=== PATIENT | female | born 1960 | race Caucasian/White ===

== ENCOUNTER 2024-05-22 23:54 | Emergency (ER) | payer BC, SELFPAY ==
[2024-05-22 23:58] VITALS: BP 120/68
[2024-05-23 00:20] LABS: Urine Albumin 2+ (Neg - Trace); Urine Bilirubin Negative (Negative); Urine Character Slightly Cloudy (Clear); Urine Color Yellow; Urine Glucose Negative (Negative); Urine Ketone Negative (Negative); Urine Leukocyte 3+ (Negative); Urine Nitrite Negative (Negative); Urine Occult Blood 4+ (Negative); Urine Specific Gravity 1.015 (<1.030); Urine Urobilinogen Negative (Neg - 1+)
[2024-05-23 01:01] LABS: Urine Mucus Many; Urine Squamous Cell >30 /LPF (Few); Urine Urothelial Cell >30 /LPF (FEW)
[2024-05-23 01:02] LABS: Urine Amorphous Seen; Urine White Cell >100 /HPF (0-5)
[2024-05-23 01:10] LABS: Urine Bacteria Many (Negative); Urine Red Blood Cell >100 /HPF (0-2); Urine Yeast SEEN (Negative)
[2024-05-23 03:22] VITALS: BMI 19.2
[2024-05-23 03:33] VITALS: BP 101/68
--- NOTE | 2024-05-23 04:08 | ED.GENMED ---
History of Present Illness
General
Chief Complaint: Urinary Symptoms
Source: patient
Exam Limitations: none
Time Seen by Provider: 05/23/24 03:55
Nursing documentation reviewed up to this point in time: agreed with
History of Present Illness
History of Present Illness:
This is a 63-year-old woman who has history of occasional UTIs. It has been a number of years since her last UTI. She presents with dysuria, urinary frequency, urgency that began yesterday morning, progressive throughout the day. She has not had
a fever nor chills, she denies back nor flank pain, no abdominal pain, no nausea nor vomiting, no diarrhea or constipation. She has not noticed hematuria.
Current symptoms feel very similar to previous UTIs.
She has not taken anything for discomfort.
Past History
Past History
ED Past Medical History: Other (Postoperative PE 2011)
ED Past Surgical History: Orthopedic
Social History
Tobacco: Non-smoker
Personal:
Living: with family
Employment: Employed
Family History
Family History: Other (Noncontributory)
Phy Exam
Physical Exam
Physical Exam:
GENERAL: Alert , in no apparent distress
EYE: anicteric
NECK: Supple, nontender, no meningismus, no significant adenopathy.
ENT: oral mucosa is moist. No rhinorrhea.
CARDIAC: Regular rate and rhythm. no murmur.
LUNGS: Clear breath sounds bilaterally, no acute respiratory distress, no wheezes/rales/rhonchi
ABDOMEN: Soft, nondistended, without focal tenderness, no r/g, no cvat. normoactive BS.
NEUROLOGICAL: Alert and oriented x3, no focal neuro deficits. Gait is thompson and steady.
SKIN: Warm and dry, normal color, skin intact. No rash.
MUSCULOSKELETAL: No C/C/E. peripheral pulses are full and equal b/l. No palpable tenderness.
PSYCH: Normal and appropriate interaction.
Course
Orders/Labs/Results
Orders:
Orders
05/23/24 00:05
Urinalysis Reflex To Culture Urgent
Date Specimen was Collected: 05/23/24
Time Specimen was Collected: 00:02
Urine Microscopic Reflex Cult Urgent
Urine Culture Urgent
[facility] Source: U
Specimen Description:
Date Specimen was Collected: 05/23/24
Time Specimen was Collected: 00:02
05/23/24 04:08
Nitrofurantoin Monohydrate [Macrobid] 100 mg PO NOW STA
Phenazopyridine HCl [Pyridium] 200 mg PO NOW STA
Abnormal Lab Results
05/23/24
00:05
Ur Occult Blood Reflex 4+ A
(Negative)
Leukocyte Esterase Rfl 3+ A
(Negative)
Urine RBC >100 A /HPF
(0-2)
Urine WBC (Reflex) >100 A /HPF
(0-5)
Urine Bacteria (Reflex) Many A
(Negative)
Urine Albumin (Reflex) 2+ A
(Neg - Trace)
Vital Signs
Initial and Last Documented VS:
Initial Vital Signs
Temp Pulse Resp BP Pulse Ox
98.4 F 74 16 120/68 98
05/22/24 23:58 05/22/24 23:58 05/22/24 23:58 05/22/24 23:58 05/22/24 23:58
Last Documented Vital Signs
Temp Pulse Resp BP Pulse Ox
98.4 F 68 14 101/68 95
05/22/24 23:58 05/23/24 03:33 05/23/24 03:33 05/23/24 03:33 05/23/24 03:33
MDM/Problems Addressed
Differential Diagnosis Includes:
Patient presents with 1 day history of UTI symptoms.
Overall well in appearance. Nothing in history nor exam to suggest upper tract infection.
No history of immunocompromise. No history of frequent UTIs nor interstitial cystitis.
Urinalysis consistent with UTI. Urine culture is pending.
Will treat with 5-day course of Macrobid and add Pyridium for as needed discomfort.
Discussed importance of staying well-hydrated on a daily basis.
Follow-up with PCP as needed.
Return precautions discussed.
*Pulse Oximetry
Patient hypoxic: no
*Critical Care Note
Total Time (30-74mins, 75-104mins- exclusive of procedures): Not Applicable
ED Attending Note
-
Portions of this chart may have been created with voice recognition software.� Occasional wrong word or��sound alike� substitutions may have occurred due to the inherent limitations of voice recognition software.
Discharge Plan
Departure
Patient Disposition: Home (Routine Discharge)
Date of Disposition: 05/23/24
Time of Disposition: 04:08
Patient with high blood pressure during this ER visit?: No
Condition: Good
Discharge Problem:
Acute cystitis
Instructions: Urinary Tract Infection, Adult (DC)
Prescriptions:
New
nitrofurantoin monohyd/m-cryst [Macrobid] 100 mg capsule
100 mg PO Q12H 5 Days Qty: 10 0RF
phenazopyridine [Pyridium] 200 mg tablet
200 mg PO TID PRN (Reason: bladder pain) 3 Days Qty: 9 0RF
Referrals:
UNKNOWN - PT DOES,NOT KNOW [Family Provider] -
Interventions
Interventions:
*Risk Screen - Suicide Last Done: 05/22/24 23:58
*Neglect/Abuse Screening Last Done: 05/22/24 23:58
ED- Fall Risk Assessment Last Done: 05/23/24 03:22
*ED COVID-19 Vaccine History Last Done: 05/23/24 03:22
ED-Female Genitourinary Assessment Last Done: 05/23/24 03:22
Discharge Date and Time
Print Language: ROMANSH
[2024-05-23] MEDS: MACROBID 100 MG PO (04:34)
[2024-05-23] MEDS: Pyridium 200 MG PO (04:35)
== END 2024-05-23 04:35 | disposition home or self-care (01) ==
LOC: EMR 23:54
PROVIDERS: Physician Assistant; EMERGENCY PHYSICIAN Emergency Medicine
DX: N30.00 Acute cystitis without hematuria (principal); Z86.711 Personal history of pulmonary embolism; Z87.440 Personal history of urinary (tract) infections
CPT/HCPCS: 99282; 81003; 81015; 87086

== ENCOUNTER → 2024-12-19 11:41 | Outpatient (REF) | payer SELFPAY | LOC: HWRAD 11:41 | PROVIDERS: ATTENDING PHYSICIAN Family Medicine; OTHER PHYSICIAN Internal Medicine Hematology & Oncology; REFERRING PHYSICIAN Internal Medicine Cardiovascular Disease | DX: G45.9 Transient cerebral ischemic attack, unspecified (principal) | CPT/HCPCS: 75571 ==

== ENCOUNTER 2025-02-07 07:23 | Day surgery (SDC) | payer BC, SELFPAY ==
[2025-02-07 08:15] VITALS: BMI 19.8
== END 2025-02-07 09:39 | disposition home or self-care (01) ==
LOC: CATH 07:23
PROVIDERS: ATTENDING PHYSICIAN Internal Medicine Cardiovascular Disease; FAMILY PHYSICIAN Family Medicine; OTHER PHYSICIAN Internal Medicine Cardiovascular Disease
DX: I08.1 Rheumatic disorders of both mitral and tricuspid valves (principal); I08.8 Other rheumatic multiple valve diseases
CPT/HCPCS: 93312; 93320; 93325